=== PATIENT | male | born 1980 | race Caucasian/White ===

== ENCOUNTER 2019-10-09 10:37 | Emergency (ER) | payer BC ==
[~2019-10-09] VITALS: Ht 200.7 cm; Wt 170.1 kg
[2019-10-09 10:53] VITALS: Ht 200.7 cm; Wt 170.1 kg
[2019-10-09 13:45] VITALS: BP 114/84
== END 2019-10-09 13:45 | disposition home or self-care (01) ==
LOC: ED 10:37
DX: S16.1XXA Strain of muscle, fascia and tendon at neck level, initial encounter (principal); S39.012A Strain of muscle, fascia and tendon of lower back, initial encounter; Z88.2 Allergy status to sulfonamides; Z98.890 Other specified postprocedural states; Z88.0 Allergy status to penicillin; V49.9XXA Car occupant (driver) (passenger) injured in unspecified traffic accident, initial encounter; Y93.I9 Activity, other involving external motion; Y92.413 State road as the place of occurrence of the external cause; Y99.8 Other external cause status